=== PATIENT | female | born 1935 | race African-American/Black ===

== ENCOUNTER → 2017-07-22 | Day surgery (SDC) | payer MEDICARE, BC ==
[2017-07-22] VITALS (7 sets, daily range): BP systolic 168–195; BP diastolic 65–74
[~2017-07-22] VITALS: Ht 162.6 cm; Wt 72.6 kg
[~2017-07-22] MED LIST: ALBU2.5V13 IH; AMLO5TAB4 PO; ATOR20TA65 PO; CEFAZOLIN 1000MG PREMIX 50 ML IV ONE; CHOL100046 PO; CLON0.1T PO; CLOP75TA16 PO; FENTANYL CITRATE/PF 50MCG/ML 2ML VIAL IV ONE; FENTANYL CITRATE/PF 50MCG/ML 2ML VIAL IV SCH; FENTANYL CITRATE/PF 50MCG/ML 2ML VIAL ONE; FERR-63 PO; FURO40TA5 PO; HYDR100T26 PO; INSU3INS6 SUBCUT; LIDOCAINE HCL 1% 20ML VIAL (Pyxis) INJ ONE; LOSA50TA20 PO; NOVOLOG SLIDING; ONDANSETRON HCL 4MG/2ML VIAL IV ONE; ONDANSETRON HCL 4MG/2ML VIAL IV SCH; ONDANSETRON HCL 4MG/2ML VIAL ONE; SODIUM BICARBONATE 4% (2.4MEQ) 5ML VIAL IV ONE
[2017-07-22 09:25] LABS: BASOPHILS % 0.8 % (0.0-2.0); EOSINOPHILS % 1.8 % (0.0-5.0); HEMATOCRIT. 28.4 % (36.0-48.0); HEMOGLOBIN. 9.4 g/dL (12.0-16.0); LYMPHOCYTES % 21.9 % (20.0-50.0); MEAN CORPUSCULAR HEMOGLOBIN 27.2 pg (28.0-32.0); MEAN CORPUSCULAR VOLUME 81.9 fL (81.0-99.0); MONOCYTES % 8.8 % (2.0-8.0); NEUTROPHILS % 66.7 % (40.0-76.0); PLATELET 270 x1000/uL (130-400); RED BLOOD CELL COUNT 3.47 mill/uL (4.2-5.4); RED CELL DISTRIBUTION WIDTH 15.8 % (11.6-14.6)
[2017-07-22 09:34] LABS: PARTIAL THROMBOPLASTIN TIME 27.5 sec (23.4-31.0); PROTHROMBIN TIME 10.7 sec (9.4-11.6)
== END | disposition home or self-care (01) ==
LOC: RADANGIO 09:02
PROVIDERS: ATTEND Internal Medicine Nephrology
DX: N18.6 End stage renal disease (principal)
CPT/HCPCS: 36415; 36558; 71010; 76937; 77001; 82947; 84132; 85025; 85610; 85730; 99152; 99153; C1750; C1769; J1642; J3490; J7040; J0690; J2405; J3010

== ENCOUNTER 2017-10-26 11:00 | Inpatient (IN) | payer MEDICARE, BC ==
[~2017-10-26] VITALS: Ht 157.5 cm; Wt 69.4 kg
[~2017-10-26 11:00] MED LIST changes: -CEFAZOLIN 1000MG PREMIX 50 ML IV ONE; -FENTANYL CITRATE/PF 50MCG/ML 2ML VIAL IV ONE; -FENTANYL CITRATE/PF 50MCG/ML 2ML VIAL IV SCH; -FENTANYL CITRATE/PF 50MCG/ML 2ML VIAL ONE; -LIDOCAINE HCL 1% 20ML VIAL (Pyxis) INJ ONE; -ONDANSETRON HCL 4MG/2ML VIAL IV ONE; -ONDANSETRON HCL 4MG/2ML VIAL IV SCH; -ONDANSETRON HCL 4MG/2ML VIAL ONE; -SODIUM BICARBONATE 4% (2.4MEQ) 5ML VIAL IV ONE
[2017-10-26 15:15] LABS: PARTIAL THROMBOPLASTIN TIME 27.5 sec (23.4-31.0); PROTHROMBIN TIME 10.7 sec (9.4-11.6)
[2017-10-26 15:28] LABS: BASOPHILS % 0.3 % (0.0-2.0); EOSINOPHILS % 5.5 % (0.0-5.0); HEMATOCRIT. 37.1 % (36.0-48.0); HEMOGLOBIN. 12.1 g/dL (12.0-16.0); MEAN CORPUSCULAR HEMOGLOBIN 26.8 pg (28.0-32.0); MEAN CORPUSCULAR VOLUME 82.5 fL (81.0-99.0); MEAN PLATELET VOLUME 8.8 fl (7.4-10.4); MONOCYTES % 7.4 % (2.0-8.0); NEUTROPHILS % 65.8 % (40.0-76.0); PLATELET 230 x1000/uL (130-400); RED BLOOD CELL COUNT 4.49 mill/uL (4.2-5.4); RED CELL DISTRIBUTION WIDTH 18.1 % (11.6-14.6)
[2017-10-26] MEDS ORDERED: HYDRALAZINE HCL 25MG TABLET PO ONE (16:15)
[2017-10-26] MEDS ORDERED: CINA30 PO (20:43)
[2017-10-26 21:10] VITALS: BP 164/64
[2017-10-26 22:06] VITALS: BP 164/64
[2017-10-26] MEDS ORDERED: AMOX1TAB16 PO (22:26)
[2017-10-26] MEDS ORDERED: ACETAMINOPHEN 650MG/20.3ML UDC PO PRN (22:30)
[2017-10-26] MEDS ORDERED: MORPHINE SULFATE 2 MG/ML CPJ (NOT FOR IM USE) IV PRN (22:30)
[2017-10-26] MEDS ORDERED: DEXTROSE 50% WATER 50ML SYRINGE IV PRN (22:30)
[2017-10-26] MEDS ORDERED: ONDANSETRON HCL 4MG/2ML VIAL IV PRN (22:30)
[2017-10-26] MEDS ORDERED: CLONIDINE 0.1MG TABLET PO PRN ×2 (22:30→23:30)
[2017-10-26] MEDS: ATORVASTATIN CALCIUM 20MG TABLET PO SCH (23:37)
[2017-10-27] VITALS (7 sets, daily range): BP systolic 121–173; BP diastolic 48–95
[2017-10-27] MEDS ORDERED: CLONIDINE 0.1MG TABLET PO PRN (04:30)
[2017-10-27] MEDS: HYDRALAZINE HCL 100MG TABLET PO SCH ×3 (05:11→21:34)
[2017-10-27 06:54] LABS: BASOPHILS % 0.5 % (0.0-2.0); EOSINOPHILS % 5.7 % (0.0-5.0); HEMATOCRIT. 33.9 % (36.0-48.0); HEMOGLOBIN. 11.2 g/dL (12.0-16.0); LYMPHOCYTES % 21.7 % (20.0-50.0); MEAN CORPUSCULAR VOLUME 81.8 fL (81.0-99.0); MEAN PLATELET VOLUME 8.3 fl (7.4-10.4); MONOCYTES % 7.6 % (2.0-8.0); NEUTROPHILS % 64.5 % (40.0-76.0); PLATELET 213 x1000/uL (130-400); RED BLOOD CELL COUNT 4.14 mill/uL (4.2-5.4); RED CELL DISTRIBUTION WIDTH 18.2 % (11.6-14.6)
[2017-10-27] MEDS: BLOOD SUGAR DIAGNOSTIC STRIP TEST SCH ×4 (07:20→20:35)
[2017-10-27] MEDS: INSULIN LISPRO 100 UNITS/ML SUBCUT SCH ×4 (07:50→21:00)
[2017-10-27] MEDS ORDERED: CLOPIDOGREL 75MG TABLET PO SCH (09:00)
[2017-10-27] MEDS ORDERED: AMOXICILLIN/POTASSIUM CLAVULANATE 875/125MG TAB PO SCH ×3 (09:00→17:00)
[2017-10-27] MEDS ORDERED: AMLODIPINE 5MG TABLET PO SCH (09:00)
[2017-10-27] MEDS ORDERED: LOSARTAN POTASSIUM 50 MG TABLET PO SCH (09:00)
[2017-10-27] MEDS: CINACALCET HCL 30MG TABLET PO SCH (10:45)
[2017-10-27] MEDS: FUROSEMIDE 40MG TABLET PO SCH (10:46)
[2017-10-27] MEDS: FERROUS SULFATE 325MG TABLET PO SCH ×3 (10:46→17:49)
[2017-10-27] MEDS ORDERED: ENOXAPARIN 30MG/0.3ML SYR SUBCUT SCH (20:00)
[2017-10-27] MEDS: ATORVASTATIN CALCIUM 20MG TABLET PO SCH (20:35)
[2017-10-27] MEDS: AMOXICILLIN/POTASSIUM CLAVULANATE 500/125MG TAB PO SCH (20:35)
[2017-10-28] VITALS (14 sets, daily range): BP systolic 90–193; BP diastolic 51–83
[2017-10-28 06:42] LABS: BASOPHILS % 0.5 % (0.0-2.0); HEMATOCRIT. 36.6 % (36.0-48.0); HEMOGLOBIN. 11.9 g/dL (12.0-16.0); LYMPHOCYTES % 29.6 % (20.0-50.0); MEAN CORPUSCULAR HEMOGLOBIN 26.9 pg (28.0-32.0); MEAN CORPUSCULAR VOLUME 82.8 fL (81.0-99.0); MEAN PLATELET VOLUME 8.8 fl (7.4-10.4); MONOCYTES % 6.7 % (2.0-8.0); NEUTROPHILS % 59.2 % (40.0-76.0); PLATELET 234 x1000/uL (130-400); RED BLOOD CELL COUNT 4.42 mill/uL (4.2-5.4); RED CELL DISTRIBUTION WIDTH 17.9 % (11.6-14.6)
[2017-10-28] MEDS: INSULIN LISPRO 100 UNITS/ML SUBCUT SCH ×2 (07:50→12:50)
[2017-10-28] MEDS ORDERED: LIDOCAINE HCL 1% 20ML VIAL (Pyxis) INJ ONE (07:50)
[2017-10-28] MEDS: BLOOD SUGAR DIAGNOSTIC STRIP TEST SCH ×3 (07:50→17:45)
[2017-10-28] MEDS ORDERED: IOHEXOL-300 100 ML BOTTLE ONE (07:51)
[2017-10-28] MEDS ORDERED: HEPARIN 1000 UNITS/ML 10ML ONE (07:51)
[2017-10-28] MEDS ORDERED: SODIUM BICARBONATE 4% (2.4MEQ) 5ML VIAL IV ONE (07:51)
[2017-10-28] MEDS ORDERED: FENTANYL CITRATE/PF 50MCG/ML 2ML VIAL ONE (08:28)
[2017-10-28] MEDS ORDERED: HEPARIN 5000 UNITS/ML VIAL IV NR (08:45)
[2017-10-28] MEDS ORDERED: HEPARIN 5000 UNITS/ML VIAL IV ONE (08:45)
[2017-10-28] MEDS ORDERED: FENTANYL CITRATE/PF 50MCG/ML 2ML VIAL IV ONE (09:00)
[2017-10-28] MEDS: FUROSEMIDE 40MG TABLET PO SCH (11:04)
[2017-10-28] MEDS: FERROUS SULFATE 325MG TABLET PO SCH ×2 (11:04→13:00)
[2017-10-28] MEDS: CINACALCET HCL 30MG TABLET PO SCH (11:04)
[2017-10-28] MEDS: AMOXICILLIN/POTASSIUM CLAVULANATE 500/125MG TAB PO SCH (18:49)
== END 2017-10-28 19:30 | disposition home or self-care (01) | DRG 252 ==
LOC: ER 11:43 → 6EST 15:12 → ENRESERV 19:58
PROVIDERS: ADMIT Internal Medicine Nephrology; ATTEND Internal Medicine Nephrology
PROC: 5A1D70Z Performance of Urinary Filtration, Intermittent, Less than 6 Hours Per Day (ICD-10-PCS; principal; 2017-10-27)
PROC: 05CY3ZZ Extirpation of Matter from Upper Vein, Percutaneous Approach (ICD-10-PCS; 2017-10-28)
PROC: 057Y3ZZ Dilation of Upper Vein, Percutaneous Approach (ICD-10-PCS; 2017-10-28)
PROC: B31J1ZZ Fluoroscopy of Left Upper Extremity Arteries using Low Osmolar Contrast (ICD-10-PCS; 2017-10-28)
PROC: B51N1ZZ Fluoroscopy of Left Upper Extremity Veins using Low Osmolar Contrast (ICD-10-PCS; 2017-10-28)
PROC: B51W1ZZ Fluoroscopy of Dialysis Shunt/Fistula using Low Osmolar Contrast (ICD-10-PCS; 2017-10-28)
PROC: B5181ZZ Fluoroscopy of Superior Vena Cava using Low Osmolar Contrast (ICD-10-PCS; 2017-10-28)
DX: T82.818A Embolism due to vascular prosthetic devices, implants and grafts, initial encounter (principal); N18.6 End stage renal disease; I13.2 Hypertensive heart and chronic kidney disease with heart failure and with stage 5 chronic kidney disease, or end stage renal disease; G81.91 Hemiplegia, unspecified affecting right dominant side; E11.22 Type 2 diabetes mellitus with diabetic chronic kidney disease; I69.351 Hemiplegia and hemiparesis following cerebral infarction affecting right dominant side; I50.9 Heart failure, unspecified; Y83.8 Other surgical procedures as the cause of abnormal reaction of the patient, or of later complication, without mention of misadventure at the time of the procedure; I25.10 Atherosclerotic heart disease of native coronary artery without angina pectoris; E78.5 Hyperlipidemia, unspecified; D64.9 Anemia, unspecified; Z99.2 Dependence on renal dialysis; Z90.710 Acquired absence of both cervix and uterus; Z99.3 Dependence on wheelchair; Z79.4 Long term (current) use of insulin; Z88.1 Allergy status to other antibiotic agents; Y92.89 Other specified places as the place of occurrence of the external cause
CPT/HCPCS: 36415; 36905; 80048; 82962; 85025; 85610; 85730; 93005; 93971; C1725; C1766; C1769; C1893; C2630; J1644; J3010; J3490; J7030; J7050; Q9967

== ENCOUNTER 2018-12-24 17:43 | Emergency (ER) | payer BC, MEDICARE ==
[~2018-12-24] VITALS: Ht 152.4 cm; Wt 79.0 kg
[~2018-12-24 17:43] MED LIST changes: +AMOX1TAB16 PO; +CINA30 PO
[2018-12-24 18:12] VITALS: BP 186/112
== END 2018-12-24 20:46 | disposition left against medical advice (07) ==
LOC: ER 17:43
DX: Z53.21 Procedure and treatment not carried out due to patient leaving prior to being seen by health care provider (principal)